=== PATIENT | male | born 1995 ===

== ENCOUNTER 2021-08-30 12:02 | Inpatient (IN) | payer SELFPAY ==
[~2021-08-30] VITALS: Ht 167.6 cm; Wt 73.6 kg
[2021-08-30 12:25] LABS: BASO # 0.1 x10^3/uL (0.0-0.2); BASO % 1 % (0-3); EOS % 0 % (0-3); HEMATOCRIT 44.6 % (39.0-53.0); LYMPH % 11 % (24-48); MEAN CORPUSCULAR HEMOGLOBIN 31 pg (25-35); MEAN CORPUSCULAR HGB CONC 34 g/dL (31-37); MEAN CORPUSCULAR VOLUME 92 fL (79-100); MONO # 0.7 x10^3/uL (0.0-1.1); MONO % 4 % (0-9); NEUT # 14.5 x10^3/uL (1.8-7.7); NEUT % 84 % (31-73); PLATELET COUNT 313 x10^3/uL (140-400); RED BLOOD COUNT 4.84 x10^6/uL (4.30-5.70); RED CELL DISTRIBUTION WIDTH 13.5 % (11.5-14.5); WHITE BLOOD COUNT 17.3 x10^3/uL (4.0-11.0)
[2021-08-30 12:36] LABS: CALCIUM 9.2 mg/dL (8.5-10.1); CREATININE 1.4 mg/dL (0.7-1.3); GFR 61.3; POTASSIUM 3.4 mmol/L (3.5-5.1)
[2021-08-30 12:42] LABS: ALBUMIN 3.8 g/dL (3.4-5.0); ALBUMIN/GLOBULIN RATIO 0.9 (1.0-1.7); TOTAL BILIRUBIN 1.2 mg/dL (0.2-1.0); TOTAL PROTEIN 7.9 g/dL (6.4-8.2)
--- NOTE | 2021-08-30 13:11 | RAD ---
EXAM: CT head and cervical spine without contrast INDICATION: New seizure COMPARISON: None TECHNIQUE: Axial CT imaging through the head and cervical spine without intravenous contrast. Sagitta l and coronal reformats were obtained. One or more of the following individualized dose reduction techniques were utilized for this examinat ion: 1. Automated exposure control 2. Adjustment of the mA and/or kV according to patient size 3. Use of iterative reconstruction technique. FINDINGS: CT head: The ventricles and sulci are normal. Peacock-white matter differentiation is maintained. There is no in tracranial hemorrhage, acute infarct, or mass lesion. Basal cisterns are clear. The skull and scalp are intact. Paranasal sinuses and mastoid air cells are clear. Globes and orbits are intact.. CT cervical spine: No acute fracture. Alignment is normal. The craniocervical junction and atlantoaxial interval are sergio ntained. Disc spaces and facet joints are normal. Prevertebral soft tissue is normal. IMPRESSION: 1. No acute intracranial abnormality. 2. No acute osseous abnormality cervical spine. Electronically signed by: Savi Corona MD (08/30/2021 1:09 PM) [id number]
--- NOTE | 2021-08-30 13:19 | PHYS DOC ---
Past Medical History Past Medical History: No Pertinent History Past Surgical History: No Surgical History Smoking Status: Current Every Day Smoker Additional Information: 05/14 ppd Alcohol Use: Occasionally Social History Narrative: occasional use General Adult EDM: Chief Complaint: SEIZURE HPI: HPI: Patient is a 26 year old male without significant past medical history who presents via EMS with new onset seizure while working. 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 Per EMS, patient was postictal on arrival. Patient reports he bit his left lower lip during this episode. He does not have any recollection of the seizure. The seizure was witnessed by coworkers. He states he was not exerting himself and had no symptoms prior to seizing. Patient denies having eaten or drank anything today. Patient reports his dad has history of diabetes. He denies headache, blurred vision or other vision changes, bowel or bladder incontinence, head trauma, neck pain. Patient has no other complaints at this time. Review of Systems: Review of Systems: Constitutional: Denies fever, chills or generalized weakness Eyes: Denies change in visual acuity, visual field deficits or discharge HENT: Denies ear pain, nasal congestion or sore throat Respiratory: Denies cough or shortness of breath Cardiovascular: Denies chest pain, palpitations or edema GI: Denies abdominal pain, nausea, vomiting, bloody stools or diarrhea : Denies dysuria or hematuria Musculoskeletal: Denies back pain or joint pain Integument: Denies rash or other skin lesion Neurologic: See HPI Heart Score: C/O Chest Pain: No Physical Exam: PE: Constitutional: Well developed, well nourished, no acute distress, non-toxic appearance. HENT: Normocephalic, bilateral external ears normal, oropharynx moist, laceration on the inner lower lip on the left side limited to oral mucosa, nose normal. Eyes: PERRL, EOMI, conjunctiva normal, no discharge. Neck: Normal range of motion, no tenderness, supple, no stridor. Cardiovascular: Elevated heart rate. No apparent murmurs, rubs or gallops. Lungs & Thorax: Bilateral breath sounds clear to auscultation. Skin: Warm, dry, no erythema, no rash. Back: No step-off, no tenderness. Extremities: No tenderness, no cyanosis, no clubbing, ROM intact, no edema. Neurologic: Alert and oriented x4, normal motor function, normal sensory function, no focal deficits noted. Current Patient Data: Labs: Laboratory Tests Test 08/30/21 12:10 08/30/21 12:34 White Blood Count 17.3 x10^3/uL (4.0-11.0) H Red Blood Count 4.84 x10^6/uL (4.30-5.70) Hemoglobin 15.0 g/dL (13.0-17.5) Hematocrit 44.6 % (39.0-53.0) Mean Corpuscular Volume 92 fL (79-100) Mean Corpuscular Hemoglobin 31 pg (25-35) Mean Corpuscular Hemoglobin Concent 34 g/dL (31-37) Red Cell Distribution Width 13.5 % (11.5-14.5) Platelet Count 313 x10^3/uL (140-400) Neutrophils (%) (Auto) 84 % (31-73) H Lymphocytes (%) (Auto) 11 % (24-48) L Monocytes (%) (Auto) 4 % (0-9) Eosinophils (%) (Auto) 0 % (0-3) Basophils (%) (Auto) 1 % (0-3) Neutrophils # (Auto) 14.5 x10^3/uL (1.8-7.7) H Lymphocytes # (Auto) 2.0 x10^3/uL (1.0-4.8) Monocytes # (Auto) 0.7 x10^3/uL (0.0-1.1) Eosinophils # (Auto) 0.0 x10^3/uL (0.0-0.7) Basophils # (Auto) 0.1 x10^3/uL (0.0-0.2) Platelet Estimate Pending Sodium Level 141 mmol/L (136-145) Potassium Level 3.4 mmol/L (3.5-5.1) L Chloride Level 101 mmol/L (98-107) Carbon Dioxide Level 18 mmol/L (21-32) L Anion Gap 22 (6-14) H Blood Urea Nitrogen 7 mg/dL (8-26) L Creatinine 1.4 mg/dL (0.7-1.3) H Estimated GFR (Cockcroft-Gault) 61.3 BUN/Creatinine Ratio 5 (6-20) L Glucose Level 131 mg/dL (70-99) H Lactic Acid Level 10.5 mmol/L (0.4-2.0) *H Calcium Level 9.2 mg/dL (8.5-10.1) Total Bilirubin 1.2 mg/dL (0.2-1.0) H Aspartate Amino Transferase (AST) 24 U/L (15-37) Alanine Aminotransferase (ALT) 39 U/L (16-63) Alkaline Phosphatase 164 U/L (46-116) H Total Protein 7.9 g/dL (6.4-8.2) Albumin 3.8 g/dL (3.4-5.0) Albumin/Globulin Ratio 0.9 (1.0-1.7) L Glucose (Fingerstick) 133 mg/dL (70-99) H Laboratory Tests 08/30/21 12:10 Laboratory Tests 08/30/21 12:10 Vital Signs: Vital Signs Date Time Temp Pulse Resp B/P (MAP) Pulse Ox O2 Delivery O2 Flow Rate FiO2 08/30/21 14:03 80 20 99 08/30/21 13:30 108 16 98 08/30/21 13:00 94 20 94 08/30/21 12:30 106 20 96 08/30/21 12:02 98.2 120 24 125/66 (85) 99 Room Air 98.2 EKG: EKG: EKG Interpreted by Dr. Almonte at 1218: Sinus tachycardia 115 bpm with no ectopic be ats. QT 340 ms/QTc 472 ms. No STEMI. Radiology/Procedures: Radiology/Procedures: PROCEDURE: CT HEAD AND CERVICAL SPINE WO EXAM: CT head and cervical spine without contrast INDICATION: New seizure COMPARISON: None TECHNIQUE: Axial CT imaging through the head and cervical spine without intravenous contrast. Sagittal and coronal reformats were obtained. One or more of the following individualized dose reduction techniques were utilized for this examination: 1. Automated exposure control 2. Adjustment of the mA and/or kV according to patient size 3. Use of iterative reconstruction technique. FINDINGS: CT head: The ventricles and sulci are normal. Peacock-white matter differentiation is maintained. There is no intracranial hemorrhage, acute infarct, or mass lesion. Basal cisterns are clear. The skull and scalp are intact. Paranasal sinuses and mastoid air cells are clear. Globes and orbits are intact.. CT cervical spine: No acute fracture. Alignment is normal. The craniocervical junction and atlantoaxial interval are maintained. Disc spaces and facet joints are normal. Prevertebral soft tissue is normal. IMPRESSION: 1. No acute intracranial abnormality. 2. No acute osseous abnormality cervical spine. Electronically signed by: Savi Corona MD (08/30/2021 1:09 PM) [id number] Course & Med Decision Making: Course & Med Decision Making Pertinent Labs and Imaging studies reviewed. (See chart for details) Patient is a 26-year-old male who presents via EMS with new onset seizure that was witnessed. Patient work-up will include CT head and neck plain, labs, EKG. Labs reveal leukocytosis and lactic acidosis, consistent with seizure. Patient will be admitted to telemetry for neuro work-up and monitoring. Hospitalist, Dr. Acevedo, gladly accepts patient for admission. Dr. Townsend, neurologist, was notified of patient case and admission as well. [place] Disclaimer: Kaylee Disclaimer: This electronic medical record was generated, in whole or in part, using a voice recognition dictation system. Departure Departure Impression: Primary Impression: New onset seizure without head trauma Disposition: ADMITTED INPATIENT Admitting Physician: DAYANARA Lemons) Condition: GUARDED Referrals: NO PCP (PCP) MARTHA GARZA Aug 30, 2021 13:19
[2021-08-30 13:27] LABS: % BANDS 1 % (0-9); % LYMPHS 11 % (24-48); % MONOS 4 % (0-10); % SEGS 84 % (35-66); PLT ESTIMATE ADEQUATE (ADEQUATE)
[2021-08-30] MEDS ORDERED: IV RINGERS,LACTATED 1000ML 1,000 ML IV ONE (13:30)
[2021-08-30 13:56] LABS: BACTERIA,URINE 0 /HPF (0-FEW); BARBITURATES NEG (NEG); BENZODIAZEPINES NEG (NEG); CANNABINOIDS POS (NEG); COCAINE NEG (NEG); HYALINE CASTS, URINE FEW /HPF; METHADONE NEG (NEG); OPIATES NEG (NEG); PHENCYCLIDINE NEG (NEG); RBC,URINE 0 /HPF (0-2); WBC,URINE 0 /HPF (0-4)
[2021-08-30 13:58] LABS: AMPHETAMINE/METHAMPHETAMINE NEG (NEG)
--- NOTE | 2021-08-30 15:52 | PDOC2 ---
NEUROLOGY CONSULT Date of Service DOS: DATE: 08/30/21 TIME: 15:48 Reason for Consult Reason for Consult: Seizure Referring Physician Referring Physician: Dr. 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 He was postictal when emergency medical services arrived and he did bit his lower lip. He is amnestic. He feels fine now. There is no prior history of stroke, seizure, head injury. He does admit to using marijuana. He does have no other inciting issue such as stress or sleep deprivation. Past Medical History Cardiovascular: No pertinent hx Past Surgical History Past Surgical History: No pertinent history Family History Family History: No pertinent hx (No history of seizures) Social History Social History Single, occasional marijuana, tobacco, alcohol, works in construction Current Medications Current Medications Current Medications Ringer's Solution 1,000 ml @ 1,000 mls/hr 1X ONCE IV Last administered on 08/30/21at 14:00; Start 08/30/21 at 13:30; Stop 08/30/21 at 15:29; Status DC Allergies Allergies: Coded Allergies: No Known Drug Allergies (Unverified , 08/30/21) ROS Review of System Negative for fever, chills, weight loss, shortness of breath, chest pain, indigestion, hematochezia, melena, and dysuria. Full 14-point review of systems is negative. Physical Exam Physical Examination General: Well-developed, well-nourished white male in no acute distress HEENT: Normocephalic andatraumatic. Temporal arteriespulsatile and nontender. Neck: Supple without bruit, no meningismus Musculoskeletal: Stability:see neurologic. Gait exam:see neurologic. Tone:see neurologic.Strength:see neurologic. Neurological: Mental Status:intact, orientation, memory, attention span/concentration, language, fund of knowledge normal. Cranial Nerves:Pupils equal and reactive to light, extraocular movements areintact, visual goldman are full to confrontation. Facial sensation is normal. There is no facial asymmetry. Vestibulo-ocular reflex is intact. Palate elevates and tongue protrudes in midline. All other cranial related problems are negative except as mentioned before.Reflexes:2+ and symmetric with flexor plantar responses. Motor:5/5 st rength with normal tone and bulk. Coordination:Finger-nose finger and leel-ha-neco testing are normal. Rapid alternating movements and fine finger movements are intact. Gait:Normal, including tandem. Sensory:Normal pinprick, vibration, light touch, proprioception. Vitals VITALS Vital Signs Date Time Temp Pulse Resp B/P (MAP) Pulse Ox O2 Delivery O2 Flow Rate FiO2 08/30/21 14:03 80 20 99 08/30/21 12:02 98.2 125/66 (85) Room Air 98.2 Labs Labs Laboratory Tests Test 08/30/21 12:10 08/30/21 12:34 08/30/21 13:38 White Blood Count 17.3 x10^3/uL (4.0-11.0) Red Blood Count 4.84 x10^6/uL (4.30-5.70) Hemoglobin 15.0 g/dL (13.0-17.5) Hematocrit 44.6 % (39.0-53.0) Mean Corpuscular Volume 92 fL (79-100) Mean Corpuscular Hemoglobin 31 pg (25-35) Mean Corpuscular Hemoglobin Concent 34 g/dL (31-37) Red Cell Distribution Width 13.5 % (11.5-14.5) Platelet Count 313 x10^3/uL (140-400) Neutrophils (%) (Auto) 84 % (31-73) Lymphocytes (%) (Auto) 11 % (24-48) Monocytes (%) (Auto) 4 % (0-9) Eosinophils (%) (Auto) 0 % (0-3) Basophils (%) (Auto) 1 % (0-3) Neutrophils # (Auto) 14.5 x10^3/uL (1.8-7.7) Lymphocytes # (Auto) 2.0 x10^3/uL (1.0-4.8) Monocytes # (Auto) 0.7 x10^3/uL (0.0-1.1) Eosinophils # (Auto) 0.0 x10^3/uL (0.0-0.7) Basophils # (Auto) 0.1 x10^3/uL (0.0-0.2) Segmented Neutrophils % 84 % (35-66) Band Neutrophils % 1 % (0-9) Lymphocytes % 11 % (24-48) Monocytes % 4 % (0-10) Platelet Estimate Adequate (ADEQUATE) Sodium Level 141 mmol/L (136-145) Potassium Level 3.4 mmol/L (3.5-5.1) Chloride Level 101 mmol/L (98-107) Carbon Dioxide Level 18 mmol/L (21-32) Anion Gap 22 (6-14) Blood Urea Nitrogen 7 mg/dL (8-26) Creatinine 1.4 mg/dL (0.7-1.3) Estimated GFR (Cockcroft-Gault) 61.3 BUN/Creatinine Ratio 5 (6-20) Glucose Level 131 mg/dL (70-99) Lactic Acid Level 10.5 mmol/L (0.4-2.0) Calcium Level 9.2 mg/dL (8.5-10.1) Total Bilirubin 1.2 mg/dL (0.2-1.0) Aspartate Amino Transf (AST/SGOT) 24 U/L (15-37) Alanine Aminotransferase (ALT/SGPT) 39 U/L (16-63) Alkaline Phosphatase 164 U/L (46-116) Total Protein 7.9 g/dL (6.4-8.2) Albumin 3.8 g/dL (3.4-5.0) Albumin/Globulin Ratio 0.9 (1.0-1.7) Glucose (Fingerstick) 133 mg/dL (70-99) Urine Collection Type Unknown Urine Color (Auto) Yellow Urine Turbidity Clear Urine pH (Auto) 5.5 (<5.0-8.0) Urine Specific [place] 1.021 (1.000-1.030) Urine Protein (Auto) 30 mg/dL (Negative) Urine Glucose (Auto)(UA) Negative mg/dL (Negative) Urine Ketones (Auto) 10 mg/dL (Negative) Urine Blood (Auto) Negative (Negative) Urine Nitrite Negative (Negative) Urine Bilirubin (Auto) Negative (Negative) Urine Urobilinogen (Auto) 2 mg/dL (Normal) Urine Leukocyte Esterase (Auto) Negative (Negative) Urine RBC 0 /HPF (0-2) Urine WBC 0 /HPF (0-4) Urine Bacteria 0 /HPF (0-FEW) Urine Hyaline Casts Few /HPF Urine Mucus Marked /LPF Urine Opiates Screen Neg (NEG) Urine Methadone Screen Neg (NEG) Urine Barbiturates Neg (NEG) Urine Phencyclidine Screen Neg (NEG) Urine Amphetamine/Methamphetamine Neg (NEG) Urine Benzodiazepines Screen Neg (NEG) Urine Cocaine Screen Neg (NEG) Urine Cannabinoids Screen Pos (NEG) Urine Ethyl Alcohol Neg (NEG) Laboratory Tests Test 08/30/21 12:10 08/30/21 12:34 08/30/21 13:38 White Blood Count 17.3 x10^3/uL (4.0-11.0) Red Blood Count 4.84 x10^6/uL (4.30-5.70) Hemoglobin 15.0 g/dL (13.0-17.5) Hematocrit 44.6 % (39.0-53.0) Mean Corpuscular Volume 92 fL (79-100) Mean Corpuscular Hemoglobin 31 pg (25-35) Mean Corpuscular Hemoglobin Concent 34 g/dL (31-37) Red Cell Distribution Width 13.5 % (11.5-14.5) Platelet Count 313 x10^3/uL (140-400) Neutrophils (%) (Auto) 84 % (31-73) Lymphocytes (%) (Auto) 11 % (24-48) Monocytes (%) (Auto) 4 % (0-9) Eosinophils (%) (Auto) 0 % (0-3) Basophils (%) (Auto) 1 % (0-3) Neutrophils # (Auto) 14.5 x10^3/uL (1.8-7.7) Lymphocytes # (Auto) 2.0 x10^3/uL (1.0-4.8) Monocytes # (Auto) 0.7 x10^3/uL (0.0-1.1) Eosinophils # (Auto) 0.0 x10^3/uL (0.0-0.7) Basophils # (Auto) 0.1 x10^3/uL (0.0-0.2) Segmented Neutrophils % 84 % (35-66) Band Neutrophils % 1 % (0-9) Lymphocytes % 11 % (24-48) Monocytes % 4 % (0-10) Platelet Estimate Adequate (ADEQUATE) Sodium Level 141 mmol/L (136-145) Potassium Level 3.4 mmol/L (3.5-5.1) Chloride Level 101 mmol/L (98-107) Carbon Dioxide Level 18 mmol/L (21-32) Anion Gap 22 (6-14) Blood Urea Nitrogen 7 mg/dL (8-26) Creatinine 1.4 mg/dL (0.7-1.3) Estimated GFR (Cockcroft-Gault) 61.3 BUN/Creatinine Ratio 5 (6-20) Glucose Level 131 mg/dL (70-99) Lactic Acid Level 10.5 mmol/L (0.4-2.0) Calcium Level 9.2 mg/dL (8.5-10.1) Total Bilirubin 1.2 mg/dL (0.2-1.0) Aspartate Amino Transf (AST/SGOT) 24 U/L (15-37) Alanine Aminotransferase (ALT/SGPT) 39 U/L (16-63) Alkaline Phosphatase 164 U/L (46-116) Total Protein 7.9 g/dL (6.4-8.2) Albumin 3.8 g/dL (3.4-5.0) Albumin/Globulin Ratio 0.9 (1.0-1.7) Glucose (Fingerstick) 133 mg/dL (70-99) Urine Collection Type Unknown Urine Color (Auto) Yellow Urine Turbidity Clear Urine pH (Auto) 5.5 (<5.0-8.0) Urine Specific [place] 1.021 (1.000-1.030) Urine Protein (Auto) 30 mg/dL (Negative) Urine Glucose (Auto)(UA) Negative mg/dL (Negative) Urine Ketones (Auto) 10 mg/dL (Negative) Urine Blood (Auto) Negative (Negative) Urine Nitrite Negative (Negative) Urine Bilirubin (Auto) Negative (Negative) Urine Urobilinogen (Auto) 2 mg/dL (Normal) Urine Leukocyte Esterase (Auto) Negative (Negative) Urine RBC 0 /HPF (0-2) Urine WBC 0 /HPF (0-4) Urine Bacteria 0 /HPF (0-FEW) Urine Hyaline Casts Few /HPF Urine Mucus Marked /LPF Urine Opiates Screen Neg (NEG) Urine Methadone Screen Neg (NEG) Urine Barbiturates Neg (NEG) Urine Phencyclidine Screen Neg (NEG) Urine Amphetamine/Methamphetamine Neg (NEG) Urine Benzodiazepines Screen Neg (NEG) Urine Cocaine Screen Neg (NEG) Urine Cannabinoids Screen Pos (NEG) Urine Ethyl Alcohol Neg (NEG) Images Images CT head and cervical spine without contrast INDICATION: New seizure COMPARISON: None TECHNIQUE: Axial CT imaging through the head and cervical spine without intravenous contrast. Sagittal and coronal reformats were obtained. One or more of the following individualized dose reduction techniques were ut ilized for this examination: 1. Automated exposure control 2. Adjustment of the mA and/or kV according to patient size 3. Use of iterative reconstruction technique. FINDINGS: CT head: The ventricles and sulci are normal. Peacock-white matter differentiation is maintained. There is no intracranial hemorrhage, acute infarct, or mass lesion. Basal cisterns are clear. The skull and scalp are intact. Paranasal sinuses and mastoid air cells are clear. Globes and orbits are intact.. CT cervical spine: No acute fracture. Alignment is normal. The craniocervical junction and atlantoaxial interval are maintained. Disc spaces and facet joints are normal. Prevertebral soft tissue is normal. IMPRESSION: 1. No acute intracranial abnormality. 2. No acute osseous abnormality cervical spine. Assessment/Plan Assessment/Plan Impression: New seizure, only provoking factor is cannabis use, normal exam, normal head CT Lactic acidosis and leukocytosis, most likely as a result of the seizure rather than due to infection Recommendations: Observe overnight with seizure precautions MRI of the brain Hold on starting anticonvulsants. The seizure may be related to the cannabis use, so a simple step is just for him to discontinue its use. He is going to do so. Outpatient electroencephalogram Discussed with HAMILTON Oliva Follow-up with me in 4-6 weeks. Thank you for letting me help the patient's care. CLAY GALVEZ MD Aug 30, 2021 15:52
--- NOTE | 2021-08-30 16:28 | SSS ---
DATE OF SERVICE: 08/30/2021 ADMIT DATE: 08/30/2021 CHIEF COMPLAINT: Seizure. HISTORY OF PRESENT ILLNESS: The patient is a pleasant, healthy 26-year-old male who was working at [employer]. He was doing some construction. He had a seizure. He bit his tongue. He was brought in by EMS. He was little postictal. I discussed the case with ER physician. We are going to admit the patient and consult Neurology. PAST MEDICAL HISTORY: Benign. ALLERGIES: None. FAMILY HISTORY: Diabetes. SOCIAL HISTORY: Works in construction. MEDICATIONS: Reviewed, please refer to the MRAD. REVIEW OF SYSTEMS: GENERAL: No history of weight change, weakness or fevers. SKIN: No bruising, hair changes or rashes. EYES: No blurred, double or loss of vision. NOSE AND THROAT: No history of nosebleeds, hoarseness or sore throat. HEART: No history of palpitations, chest pain or shortness of breath on exertion. LUNGS: Denies cough, hemoptysis, wheezing or shortness of breath. GASTROINTESTINAL: Denies changes in appetite, nausea, vomiting, diarrhea or constipation. GENITOURINARY: No history of frequency, urgency, hesitancy or nocturia. NEUROLOGIC: Denies history of numbness, tingling, tremor or weakness. PSYCHIATRIC: No history of panic, anxiety or depression. ENDOCRINE: No history of heat or cold intolerance, polyuria or polydipsia. EXTREMITIES: Denies muscle weakness, joint pain, pain on walking or stiffness. PHYSICAL EXAMINATION: VITALS: Within normal limits and are stable. GENERAL: No apparent distress. Alert and oriented. HEENT: Normal cephalic atraumatic, external auditory canals are patent EYES: Extraocular muscles are intact, pupils are equally round and reactive to light and accommodation MUSKULOSKELETAL: Well developed, well nourished, good range of motion ENDOCRINE: No thyromegaly was palpated LYMPHATICS: No cervical chain or axillary nodes were noted HEMATOPOIETIC: No bruising NECK: Supple, no JVD, no thyromegaly was noted. LUNGS: Clear to auscultation in all lung goldman without rhonchi or wheezing. HEART: RRR, S1, S2 present. Peripheral pulses intact, no obvious murmurs were noted. ABDOMEN: Soft, nontender. Positive bowel sounds no organomegaly, normal bowel sounds. EXTREMITIES: Without any cyanosis, clubbing, or edema. Pedal pulses intact, Homans sign is negative. NEUROLOGIC: Normal speech, normal tone. A and O x 3, moves all extremities, no obvious focal deficits. PSYCHIATRIC: Normal affect, normal mood. Stable. SKIN: No ulcerations or rashes, good skin turgor, no jaundice. VASCULAR: Good capillary refill, neurovascular bundle appears to be intact. ASSESSMENT AND PLAN: New-onset seizures. The patient has been admitted. We will consult Neurology. Seizure precautions. Deep venous thrombosis prophylaxis. Full code. Hope to discharge tomorrow if stable if Neurology agrees. LIZETTE/NICA DR: LIZETTE/ani TID: [id number]
[2021-08-30 19:00] VITALS: BP 108/55
[2021-08-30 23:11] VITALS: BP 114/64
[2021-08-31 03:15] VITALS: BP 128/53
[2021-08-31 07:00] VITALS: BP 128/67
--- NOTE | 2021-08-31 10:06 | PDOC ---
[employer] PROGRESS NOTE Date of Service DOS: DATE: 08/31/21 TIME: 10:05 Chief Complaint Chief Complaint Seizure History of Present Illness History of Present Illness 08/31/2021 Patient seen and examined Discussed with RN Chart reviewed Discussed with case management He has not had any more seizures I am hoping to discharge this afternoon if okay with neurology Case management explains he is threatening to leave AMA Vitals/I&O Vitals/I&O: Vital Signs Date Time Temp Pulse Resp B/P (MAP) Pulse Ox O2 Delivery O2 Flow Rate FiO2 08/31/21 08:30 Room Air 08/31/21 07:00 98.1 74 18 128/67 (87) 97 98.1 I & O 08/30/21 08/30/21 08/31/21 15:00 23:00 07:00 Intake Total 1000 ml 240 ml Balance 1000 ml 240 ml Physical Exam General: Alert Heart: Regular rate Lungs: Clear Abdomen: Normal bowel sounds Extremities: No clubbing Skin: No rashes Labs Labs: Laboratory Tests Test 08/30/21 12:10 08/30/21 12:34 08/30/21 13:38 08/30/21 15:43 White Blood Count 17.3 x10^3/uL (4.0-11.0) Red Blood Count 4.84 x10^6/uL (4.30-5.70) Hemoglobin 15.0 g/dL (13.0-17.5) Hematocrit 44.6 % (39.0-53.0) Mean Corpuscular Volume 92 fL (79-100) Mean Corpuscular Hemoglobin 31 pg (25-35) Mean Corpuscular Hemoglobin Concent 34 g/dL (31-37) Red Cell Distribution Width 13.5 % (11.5-14.5) Platelet Count 313 x10^3/uL (140-400) Neutrophils (%) (Auto) 84 % (31-73) Lymphocytes (%) (Auto) 11 % (24-48) Monocytes (%) (Auto) 4 % (0-9) Eosinophils (%) (Auto) 0 % (0-3) Basophils (%) (Auto) 1 % (0-3) Neutrophils # (Auto) 14.5 x10^3/uL (1.8-7.7) Lymphocytes # (Auto) 2.0 x10^3/uL (1.0-4.8) Monocytes # (Auto) 0.7 x10^3/uL (0.0-1.1) Eosinophils # (Auto) 0.0 x10^3/uL (0.0-0.7) Basophils # (Auto) 0.1 x10^3/uL (0.0-0.2) Segmented Neutrophils % 84 % (35-66) Band Neutrophils % 1 % (0-9) Lymphocytes % 11 % (24-48) Monocytes % 4 % (0-10) Platelet Estimate Adequate (ADEQUATE) Sodium Level 141 mmol/L (136-145) Potassium Level 3.4 mmol/L (3.5-5.1) Chloride Level 101 mmol/L (98-107) Carbon Dioxide Level 18 mmol/L (21-32) Anion Gap 22 (6-14) Blood Urea Nitrogen 7 mg/dL (8-26) Creatinine 1.4 mg/dL (0.7-1.3) Estimated GFR (Cockcroft-Gault) 61.3 BUN/Creatinine Ratio 5 (6-20) Glucose Level 131 mg/dL (70-99) Lactic Acid Level 10.5 mmol/L (0.4-2.0) 0.6 mmol/L (0.4-2.0) Calcium Level 9.2 mg/dL (8.5-10.1) Total Bilirubin 1.2 mg/dL (0.2-1.0) Aspartate Amino Transf (AST/SGOT) 24 U/L (15-37) Alanine Aminotransferase (ALT/SGPT) 39 U/L (16-63) Alkaline Phosphatase 164 U/L (46-116) Total Protein 7.9 g/dL (6.4-8.2) Albumin 3.8 g/dL (3.4-5.0) Albumin/Globulin Ratio 0.9 (1.0-1.7) Glucose (Fingerstick) 133 mg/dL (70-99) Urine Collection Type Unknown Urine Color (Auto) Yellow Urine Turbidity Clear Urine pH (Auto) 5.5 (<5.0-8.0) Urine Specific [place] 1.021 (1.000-1.030) Urine Protein (Auto) 30 mg/dL (Negative) Urine Glucose (Auto)(UA) Negative mg/dL (Negative) Urine Ketones (Auto) 10 mg/dL (Negative) Urine Blood (Auto) Negative (Negative) Urine Nitrite Negative (Negative) Urine Bilirubin (Auto) Negative (Negative) Urine Urobilinogen (Auto) 2 mg/dL (Normal) Urine Leukocyte Esterase (Auto) Negative (Negative) Urine RBC 0 /HPF (0-2) Urine WBC 0 /HPF (0-4) Urine Bacteria 0 /HPF (0-FEW) Urine Hyaline Casts Few /HPF Urine Mucus Marked /LPF Urine Opiates Screen Neg (NEG) Urine Methadone Screen Neg (NEG) Urine Barbiturates Neg (NEG) Urine Phencyclidine Screen Neg (NEG) Urine Amphetamine/Methamphetamine Neg (NEG) Urine Benzodiazepines Screen Neg (NEG) Urine Cocaine Screen Neg (NEG) Urine Cannabinoids Screen Pos (NEG) Urine Ethyl Alcohol Neg (NEG) Assessment and Plan Assessmemt and Plan Problems Medical Problems: (1) New onset seizure without head trauma Status: Acute New onset seizure Plan I am hoping to discharge this afternoon if okay with neurology For now continue cardiac monitoring and seizure precautions Comment Review of Relevant I have reviewed the following items zaynab (where applicable) has been applied. Medications: Current Medications Medications (Trade) Dose Ordered Sig/Tessa Route PRN Reason Start Time Stop Time Status Last Admin Dose Admin Ringer's Solution 1,000 ml @ 1,000 mls/hr 1X ONCE IV 08/30/21 13:30 08/30/21 15:29 DC 08/30/21 14:00 Justifications for Admission Other Justification JORDY KNOTT III DO Aug 31, 2021 10:06
--- NOTE | 2021-08-31 10:18 | EKG ---
[facility] [address] [place] [address] Test Date: 2021-08-30 Test Time: 12:17:12 Pat Name: LUIZ RODRÍGUEZ Department: Room: Gender: M [employer]: : 1995 Requested By: MARTHA GARZA Order Number: [id number] Reading MD: Measurements Intervals Brandon Rate: 115 P: 25 HI: 142 QRS: 26 QRSD: 88 T: 15 QT: 340 QTc: 472 Interpretive Statements SINUS TACHYCARDIA OTHERWISE NORMAL ECG RI6.02 No previous ECG available for comparison
--- NOTE | 2021-08-31 10:22 | NUR ---
SS following for discharge planning. SS reviewed pt chart and discussed with pt RN. Pt is from home and is currently on room air. Neurology following. Brain MRI today. Pt requesting to discharge to home today. SS will continue to follow for discharge planning.
[2021-08-31 11:00] VITALS: BP 112/58
--- NOTE | 2021-08-31 12:21 | NUR ---
Pt okay to discharge per Dr. Post.
--- NOTE | 2021-08-31 12:39 | NUR ---
Pt left unit at 1235 by ambulation via private vehicle, accompanied by parents. Pt's IV removed without complication, VSS. Discharge paperwork discussed with pt and parents, including follow-up and education. Pt and pt's parents verbalize understanding.
--- NOTE | 2021-08-31 12:41 | PDOC ---
PROGRESS NOTES Date of Service DATE: 08/31/21 TIME: 12:38 Assessment Problems Medical Problems: (1) New onset seizure without head trauma Status: Acute New seizure, only provoking factor is cannabis use, normal exam, normal head CT Lactic acidosis and leukocytosis, most likely as a result of the seizure rather than due to infection MRI normal to my eye, radiology interpretation pending Plan Hold on starting anticonvulsants. The seizure may be related to the cannabis use, so a simple step is just for him to discontinue its use. He is going to do so. Outpatient electroencephalogram Follow-up with me in 4-6 weeks. However, parents are bringing him back to [place] where they will get follow-up there. Mom is a RN. Fully discussed with patient and his parents Subjective No complaints Objective Vital Signs Date Time Temp Pulse Resp B/P (MAP) Pulse Ox O2 Delivery O2 Flow Rate FiO2 08/31/21 11:00 98.4 77 18 112/58 (76) 97 98.4 08/31/21 08:30 Room Air Intake and Output 08/31/21 07:00 Intake Total 1240 ml Balance 1240 ml Intake Oral 240 ml IV Total 1000 ml # Voids 1 PHYSICAL EXAM Alert. Oriented to time, place and person. PERRL. EOMI. CN: no focal findings. Muscle tone: normal. Muscle strength: 5/5 DTR: 2+ Plantar reflex: Flexor Gait: not examined in bed. Sensory exam: no abnormal findings. No cerebellar signs elicited. Review of Relevant I have reviewed the following items zaynab (where applicable) has been applied. Labs Laboratory Tests Test 08/30/21 12:10 08/30/21 12:34 08/30/21 13:38 08/30/21 15:43 White Blood Count 17.3 x10^3/uL (4.0-11.0) Red Blood Count 4.84 x10^6/uL (4.30-5.70) Hemoglobin 15.0 g/dL (13.0-17.5) Hematocrit 44.6 % (39.0-53.0) Mean Corpuscular Volume 92 fL (79-100) Mean Corpuscular Hemoglobin 31 pg (25-35) Mean Corpuscular Hemoglobin Concent 34 g/dL (31-37) Red Cell Distribution Width 13.5 % (11.5-14.5) Platelet Count 313 x10^3/uL (140-400) Neutrophils (%) (Auto) 84 % (31-73) Lymphocytes (%) (Auto) 11 % (24-48) Monocytes (%) (Auto) 4 % (0-9) Eosinophils (%) (Auto) 0 % (0-3) Basophils (%) (Auto) 1 % (0-3) Neutrophils # (Auto) 14.5 x10^3/uL (1.8-7.7) Lymphocytes # (Auto) 2.0 x10^3/uL (1.0-4.8) Monocytes # (Auto) 0.7 x10^3/uL (0.0-1.1) Eosinophils # (Auto) 0.0 x10^3/uL (0.0-0.7) Basophils # (Auto) 0.1 x10^3/uL (0.0-0.2) Segmented Neutrophils % 84 % (35-66) Band Neutrophils % 1 % (0-9) Lymphocytes % 11 % (24-48) Monocytes % 4 % (0-10) Platelet Estimate Adequate (ADEQUATE) Sodium Level 141 mmol/L (136-145) Potassium Level 3.4 mmol/L (3.5-5.1) Chloride Level 101 mmol/L (98-107) Carbon Dioxide Level 18 mmol/L (21-32) Anion Gap 22 (6-14) Blood Urea Nitrogen 7 mg/dL (8-26) Creatinine 1.4 mg/dL (0.7-1.3) Estimated GFR (Cockcroft-Gault) 61.3 BUN/Creatinine Ratio 5 (6-20) Glucose Level 131 mg/dL (70-99) Lactic Acid Level 10.5 mmol/L (0.4-2.0) 0.6 mmol/L (0.4-2.0) Calcium Level 9.2 mg/dL (8.5-10.1) Total Bilirubin 1.2 mg/dL (0.2-1.0) Aspartate Amino Transf (AST/SGOT) 24 U/L (15-37) Alanine Aminotransferase (ALT/SGPT) 39 U/L (16-63) Alkaline Phosphatase 164 U/L (46-116) Total Protein 7.9 g/dL (6.4-8.2) Albumin 3.8 g/dL (3.4-5.0) Albumin/Globulin Ratio 0.9 (1.0-1.7) Glucose (Fingerstick) 133 mg/dL (70-99) Urine Collection Type Unknown Urine Color (Auto) Yellow Urine Turbidity Clear Urine pH (Auto) 5.5 (<5.0-8.0) Urine Specific [place] 1.021 (1.000-1.030) Urine Protein (Auto) 30 mg/dL (Negative) Urine Glucose (Auto)(UA) Negative mg/dL (Negative) Urine Ketones (Auto) 10 mg/dL (Negative) Urine Blood (Auto) Negative (Negative) Urine Nitrite Negative (Negative) Urine Bilirubin (Auto) Negative (Negative) Urine Urobilinogen (Auto) 2 mg/dL (Normal) Urine Leukocyte Esterase (Auto) Negative (Negative) Urine RBC 0 /HPF (0-2) Urine WBC 0 /HPF (0-4) Urine Bacteria 0 /HPF (0-FEW) Urine Hyaline Casts Few /HPF Urine Mucus Marked /LPF Urine Opiates Screen Neg (NEG) Urine Methadone Screen Neg (NEG) Urine Barbiturates Neg (NEG) Urine Phencyclidine Screen Neg (NEG) Urine Amphetamine/Methamphetamine Neg (NEG) Urine Benzodiazepines Screen Neg (NEG) Urine Cocaine Screen Neg (NEG) Urine Cannabinoids Screen Pos (NEG) Urine Ethyl Alcohol Neg (NEG) Laboratory Tests Test 08/30/21 13:38 08/30/21 15:43 Urine Collection Type Unknown Urine Color (Auto) Yellow Urine Turbidity Clear Urine pH (Auto) 5.5 (<5.0-8.0) Urine Specific [place] 1.021 (1.000-1.030) Urine Protein (Auto) 30 mg/dL (Negative) Urine Glucose (Auto)(UA) Negative mg/dL (Negative) Urine Ketones (Auto) 10 mg/dL (Negative) Urine Blood (Auto) Negative (Negative) Urine Nitrite Negative (Negative) Urine Bilirubin (Auto) Negative (Negative) Urine Urobilinogen (Auto) 2 mg/dL (Normal) Urine Leukocyte Esterase (Auto) Negative (Negative) Urine RBC 0 /HPF (0-2) Urine WBC 0 /HPF (0-4) Urine Bacteria 0 /HPF (0-FEW) Urine Hyaline Casts Few /HPF Urine Mucus Marked /LPF Urine Opiates Screen Neg (NEG) Urine Methadone Screen Neg (NEG) Urine Barbiturates Neg (NEG) Urine Phencyclidine Screen Neg (NEG) Urine Amphetamine/Methamphetamine Neg (NEG) Urine Benzodiazepines Screen Neg (NEG) Urine Cocaine Screen Neg (NEG) Urine Cannabinoids Screen Pos (NEG) Urine Ethyl Alcohol Neg (NEG) Lactic Acid Level 0.6 mmol/L (0.4-2.0) Medications Current Medications Ringer's Solution 1,000 ml @ 1,000 mls/hr 1X ONCE IV Last administered on 08/30/21at 14:00; Start 08/30/21 at 13:30; Stop 08/30/21 at 15:29; Status DC Active Scripts Active No Active Prescriptions or Reported Medications Vitals/I & O Vital Sign - Last 24 Hours 08/30/21 08/30/21 08/30/21 08/30/21 13:00 13:30 14:03 19:00 Temp 97.6 97.6 Pulse 94 108 80 64 Resp 20 16 20 18 B/P (MAP) 108/55 (72) Pulse Ox 94 98 99 97 O2 Delivery Room Air 08/30/21 08/30/21 08/31/21 08/31/21 20:00 23:11 03:15 07:00 Temp 97.8 98.1 98.1 97.8 98.1 98.1 Pulse 68 69 74 Resp 16 16 18 B/P (MAP) 114/64 (81) 128/53 (78) 128/67 (87) Pulse Ox 98 97 97 O2 Delivery Room Air Room Air Room Air 08/31/21 08/31/21 08:30 11:00 Temp 98.4 98.4 Pulse 77 Resp 18 B/P (MAP) 112/58 (76) Pulse Ox 97 O2 Delivery Room Air Intake and Output 08/30/21 08/30/21 08/31/21 15:00 23:00 07:00 Intake Total 1000 ml 240 ml Balance 1000 ml 240 ml Justicifation of Admission Dx: Justifications for Admission: Justification of Admission Dx: N/A CLAY GALVEZ MD Aug 31, 2021 12:41
--- NOTE | 2021-08-31 14:56 | RAD ---
MRI BRAIN WO History:Reason: new seizure / Spl. Instructions: / History: Technique: Multiplanar, multi sequential MR imaging was performed of the brain without contrast. Comparison: None Findings: No acute infarct. No intracranial hemorrhage. No mass effect. No hydrocephalus. Crowding of the cerebellar tonsils at the foramen magnum. Symmetric appearance of the bilateral hippocampal formations. No abnormal signal abnormality. No hete rotopic adan matter or cortical dysplasia. Imaged orbits are unremarkable. Imaged paranasal sinuses and mastoid air cells are clear. Impression: 1. No acute intracranial abnormality. 2. Crowding of the cerebellar tonsils at the foramen magnum. Electronically signed by: Pranav Leigh DO (08/31/2021 2:53 PM) [facility]
== END 2021-08-31 12:41 | disposition home or self-care (01) | DRG 101 ==
LOC: ER 12:02 → 5 NORTH 13:53
PROVIDERS: ADMIT Internal Medicine; ATTEND Internal Medicine
DX: R56.9 Unspecified convulsions (principal); E87.2 Acidosis; D72.829 Elevated white blood cell count, unspecified; F12.90 Cannabis use, unspecified, uncomplicated; S01.551A Open bite of lip, initial encounter; X58.XXXA Exposure to other specified factors, initial encounter; Y99.0 Civilian activity done for income or pay; Z83.3 Family history of diabetes mellitus; Z87.891 Personal history of nicotine dependence
CPT/HCPCS: 36415; 70450; 70551; 72125; 80053; 80307; 81001; 82962; 83605; 85007; 85025; 93005; 96360; J7120; 99285-25; G0378